=== PATIENT | female | born 1950 ===

== ENCOUNTER 2018-05-14 12:05 | Outpatient (CLI) | payer OTHER ==
[~2018-05-14] VITALS: Ht 167.6 cm; Wt 81.6 kg
== END 2018-05-14 12:20 | disposition home or self-care (01) ==
LOC: OFIC 805 12:05
DX: H60.591 Other noninfective acute otitis externa, right ear (principal); H90.41 Sensorineural hearing loss, unilateral, right ear, with unrestricted hearing on the contralateral side; H61.21 Impacted cerumen, right ear

== ENCOUNTER 2018-05-14 14:04 | Outpatient (CLI) | payer OTHER | END 2018-05-14 14:14 | disposition home or self-care (01) | LOC: LAB 14:04 | DX: H60.91 Unspecified otitis externa, right ear (principal) ==